=== PATIENT | female | born 1955 | race Caucasian/White ===

== ENCOUNTER 2025-02-14 12:35 | Emergency (ER) | payer OTHER, MEDICARE, SELFPAY ==
[2025-02-14 13:14] VITALS: BP 160/86; PULSE 103; RESP 18; TEMP 36.2; O2SAT 100
[2025-02-14 16:37] VITALS: BP 152/78; PULSE 73; RESP 16; TEMP 36.6; O2SAT 99
== END 2025-02-14 16:42 | disposition home or self-care (01) ==
PROVIDERS: Emergency Provider Emergency Medicine; Visit Provider Emergency Medicine
DX: S06.0X0A Concussion without loss of consciousness, initial encounter (principal); G44.309 Post-traumatic headache, unspecified, not intractable; V43.52XA Car driver injured in collision with other type car in traffic accident, initial encounter; S16.1XXA Strain of muscle, fascia and tendon at neck level, initial encounter; Y92.410 Unspecified street and highway as the place of occurrence of the external cause
CPT/HCPCS: 72040; 99284